=== PATIENT | female | born 1960 | race Caucasian/White ===

== ENCOUNTER 2022-09-14 16:49 | Emergency (ER) | payer BC, OTHER ==
[~2022-09-14] VITALS: Ht 170.2 cm; Wt 91.8 kg
[2022-09-14 16:56] VITALS: BP 114/79
[2022-09-14] MEDS ORDERED: HYDROcodone/acetaminophen 5mg/325mg tablet PO ONE (19:27)
[2022-09-14] MEDS ORDERED: HYDR-3965 PO (19:36)
[2022-09-14] MEDS ORDERED: bacitracin 15gm ointment TP ONE (19:40)
== END 2022-09-14 20:37 | disposition home or self-care (01) ==
LOC: ER 16:50
DX: S80.211A Abrasion, right knee, initial encounter (principal); Z88.2 Allergy status to sulfonamides; Z79.899 Other long term (current) drug therapy; W01.0XXA Fall on same level from slipping, tripping and stumbling without subsequent striking against object, initial encounter; Y93.89 Activity, other specified; Y92.89 Other specified places as the place of occurrence of the external cause; Y99.8 Other external cause status
CPT/HCPCS: 73564; 99283